=== PATIENT | male | born 1975 | race Caucasian/White ===

== ENCOUNTER → 2018-05-13 | Outpatient (CLI) | payer OTHER | LOC: NUC 09:31 | DX: R14.0 Abdominal distension (gaseous) (principal); R10.11 Right upper quadrant pain ==

== ENCOUNTER 2018-06-05 06:08 | Day surgery (SDC) | payer OTHER ==
[~2018-06-05] VITALS: Ht 180.3 cm; Wt 127.9 kg
--- NOTE | ~2018-06-05 | O ---
[facility] [place] [address] [address] [place] [address] OPERATIVE REPORT Name: SETH HOLDER Room #: 449-I [facility]..#: [id number] Admission: 06/05/18 Attend Phys: Guy Koroma MD Discharge: Date of : 73 Report #: [id number] THIS REPORT FOR: //name// CC: Guy Hensley MD DATE OF SERVICE: 06/05/2018 PREOPERATIVE DIAGNOSIS: Cholecystitis, acalculous. POSTOPERATIVE DIAGNOSIS: Cholecystitis, acalculous with cholesterolosis. PROCEDURES PERFORMED: Laparoscopic cholecystectomy with intraoperative cholangiogram. SURGEON: Guy Koroma MD ANESTHESIA: General anesthesia. COMPLICATIONS: None. ESTIMATED BLOOD LOSS: 5 mL. FINDINGS: There was adhesion identified in the proximal part of the gallbladder. Common bile duct is normal on operative cholangiogram. DESCRIPTION OF PROCEDURE: With the patient under general anesthesia, the abdomen was prepped and draped in a sterile fashion. Timeout was performed. The patient did receive preoperative IV antibiotic. 0.25% Marcaine was used to anesthetize the skin and subcutaneous tissue. Incision was made above the umbilicus in a curvilinear fashion. Fascia identified, grasped with hemostat. Fascia was then opened between the hemostat, 0 Vicryl suture placed in the fascial edges. A Veress needle was then placed through the peritoneum. Abdominal cavity was insufflated with CO2. After creating pneumoperitoneum pressure of 15, 11 mm trocar was placed in pneumoperitoneum. No harm to surrounding tissue. Two 5 mm trocars were placed in the right upper quadrant and a 5 mm trocar was placed in the right epigastrium. The patient was placed in reverse Trendelenburg position, right side tilted up. Gallbladder was identified, lifted over the liver. There is some adhesion identified in the proximal gallbladder. These were taken down. Peritoneum over the cystic duct was then dissected free both medial and then laterally. The cystic duct was isolated without difficulty. Cystic duct was cleaned off. Clip was placed in the junction of the cystic duct to the gallbladder. Opening was made in the cystic duct. Cholangiogram catheter was placed. Fluoroscopic cholangiogram was obtained. The cholangiogram catheter was identified in the cystic duct, common [address] [address] OPERATIVE REPORT Name: SETH HOLDER Room #: 449-I [facility]..#: [id number] Admission: 06/05/18 Attend Phys: Guy Koroma MD Discharge: Date of : 73 Report #: [id number] duct filled out well. No filling defect was seen. Dye was seen to flow into the duodenum. The anatomy was normal. Common duct anatomy was normal. No harm to common duct was seen. The cholangiogram catheter was then removed. Proximal cystic duct was then clipped x 2 and then divided. The cystic artery was then isolated, clipped x 2 proximally and one distally and then divided. Gallbladder was free from the liver bed. There was a pretty sizable vein in the liver bed. This was clipped and then divided. Gallbladder was completely freed without difficulty. Gallbladder was then removed through the 11 mm trocar site. Gallbladder was opened and the bile suctioned out and the gallbladder then came out. The gallbladder was opened off the field. It did contain cholesterolosis. The adhesion cholesterolosis are consistent with bad gallbladder/cholecystitis. Liver bed was checked, hemostasis excellent. Small piece of Surgicel fibrillar was placed in the liver bed. Irrigation was aspirated out. CO2 was evacuated as much as possible. Trocars were then removed. The fascia defect above the umbilicus was then closed with 0 Vicryl [id number]-wg-jvmbw x 2. Skin was irrigated. Skin was closed with 5-0 PDS. Steri-Strip and Band-Aid used for dressing. The patient tolerated the procedure well. By: 16 00 Guy Koroma MD /nt
--- NOTE | ~2018-06-05 | H ---
[facility] [place] [address] HISTORY AND PHYSICAL Name: SETH HOLDER Room #: 150-10 [facility] M.R.#: [id number] Admission: 06/05/18 Attend Phys: Guy Koroma MD Discharge: Date of : 73 Report #: [id number] THIS REPORT FOR: //name// CC: Guy Hensley DATE OF SERVICE: 06/05/2018 PREOPERATIVE DIAGNOSIS: Cholecystitis, acalculous. HISTORY OF PRESENT ILLNESS: The patient is a 42-year-old who is here for gallbladder surgery. The patient has had right upper quadrant pain for about a year and a half. The patient had an ultrasound performed on 10/12/2016. The patient has pain located under the right ribs. Initially, it did go to his back. Now it is concentrated in the right upper quadrant. No nausea or vomiting. The patient has occasional diarrhea. The patient does complain of being bloated and full. Also increased gas with increased belching and flatus. He did have a significant episode prior to his office visit on 04/28. This lasted several hours. Sometimes the pain is associated with foods. He has issue with spicy foods. Occasionally, he has issues after eating fast food. His symptoms are more in the nighttime. It does wake him up. Usually he feels good in the morning. The patient's pain is typically dull in the right upper quadrant, has had several episodes that are sharp, really sharp in nature when it gets intense. Occasionally the pain is described as squeezing. No family history of gallbladder disease. The patient did undergo a PIPIDA scan with Kinevac injection. The ejection fraction was 46%. The result was discussed with the patient and he on exam did have localized tenderness in the right upper quadrant that is mild to moderate in nature. The patient is recommended to proceed with gallbladder surgery. I am pretty certain that he does have gallbladder disease. The patient was originally to be scheduled in June, but he had attack and he wanted to have had the surgery done sooner. PAST MEDICAL HISTORY: The patient has a history of obesity. No heart disease, no diabetes, no high blood pressure, no lung disease, no liver disease, no kidney disease, no bleeding disorder, no history of blood clot. ALLERGIES: He does not have any allergies. MEDICATIONS: He has been on dicyclomine in the past. The patient does take dmnx-axb-uyixbtd Tums. He takes Tylenol for pain. FAMILY HISTORY: Father had heart disease. Mother had cancer. Uncle with prostate. SOCIAL HISTORY: The patient is a host/hostess head. He does not currently smoke. He quit in 1997. Occ[place] [address] HISTORY AND PHYSICAL Name: SETH HOLDER Room #: 150-10 [facility] M.R.#: [id number] Admission: 06/05/18 Attend Phys: Guy Koroma MD Discharge: Date of : 73 Report #: [id number] REVIEW OF SYSTEMS: No chest pain, shortness of breath or palpitation. No numbness or weakness. No headache or blurred vision. PHYSICAL EXAMINATION: GENERAL: The patient is a well-nourished male in no acute distress. HEENT: Pupils react to light. Extraocular muscles are intact. Oropharynx is clear. NECK: Soft and supple, no masses. LUNGS: Clear to auscultation. HEART: Regular rate and rhythm. No murmur or gallop. Normal S1 and S2. ABDOMEN: Soft. He does have tenderness in the right upper quadrant that is mild to moderate in nature. No mass, guarding or rigidity. No evidence of ascites. EXTREMITIES: No cyanosis, clubbing or edema. IMPRESSION: The patient is a 42-year-old with abdominal pain that is pretty classic for gallbladder disease. This has been going on for about a year and a half. No stones are seen on ultrasound. The patient did have a PIPIDA scan, which showed indeterminate ejection fraction. The patient is recommended to have gallbladder removed to treat his symptoms. I do not think there is anything else going on. The patient wants to proceed with surgery. Risk of the procedure including bleeding, infection, common bile duct injury and bile leak was discussed. The patient understands the procedure and wishes to proceed. By: 1014 1041 Guy Koroma MD /nt
--- NOTE | ~2018-06-05 | H ---
[facility] [place] [address] HISTORY AND PHYSICAL Name: SETH HOLDER Room #: 150-10 [facility] M.R.#: [id number] Admission: 06/05/18 Attend Phys: Guy Koroma MD Discharge: Date of : 73 Report #: [id number] THIS REPORT FOR: //name// CC: Guy Hensley DATE OF SERVICE: 06/05/2018 PREOPERATIVE DIAGNOSIS: Cholecystitis, acalculous. HISTORY OF PRESENT ILLNESS: The patient is a 42-year-old who has had abdominal pain, right upper quadrant for about a year and a half. The patient did have an ultrasound done on 10/12/2016. Gallbladder was normal appearance. No stones were seen. No wall thickening. The patient is complaining of pain in the right upper quadrant under the ribs. Initially, it went to his back. Now it is just in his right upper quadrant. No nausea or vomiting. Occasional diarrhea. The patient does complain of being full and bloated. He has increased gas with belching and increased flatus. The patient had an episode recently that lasted several hours. Occasionally, the DICTATION ENDS HERE By: 1008 1020 Guy Koroma MD /nt
--- NOTE | ~2018-06-05 | PATH ---
[facility] [address] [address] PATHOLOGY RPT PROCEDURE Name: SETH RIVER Room #: DEP [facility] M.R.#: [id number] Admission: 06/05/18 Date of : 73 Discharge: 06/06/18 Report #: [id number] Path Case #: [id number] [facility] Accession Number: [id number] . 01 Material submitted: . GALLBLADDER . 01 Clinical history: . Cholecystitis. . 02 Diagnosis: Gallbladder "gallbladder cholecystectomy": - Moderate chronic cholecystitis. (SHA:ever; 06/08/2018) QMS/06/08/2018 . 02 Electronically signed: . Yung Harris MD, Pathologist NPI- [id number] . 01 Gross description: . Received in formalin labeled "Seth River, gallbladder" is a previously opened cholecystectomy specimen measuring 7.0 x 2.5 x 1.3 cm. The serosa is garza-green and smooth. The mucosa is yellow-green and velvety without polyps or masses, and an average wall thickness of 0.2 cm. No calculi are present within the gallbladder or within the container. Slitter And Rewinder sections of the fundus and body and the cystic duct margin are submitted in cassette A1. ([facility]; 06/07/2018) SYC/SYC . 02 Pathologist provided ICD-10: K81.1 . 02 CPT . 681552 Specimen Comment: A courtesy copy of this report has been sent to Specimen Comment: [phone], . Specimen Comment: Report sent to / DR ZAMORA Specimen Comment: A duplicate report has been generated due to demographic updates. Performed at: [address] [id number] MD Robert Rolon MD Phone: [phone] Performed at: [address] [id number] [address] [address] PATHOLOGY RPT PROCEDURE Name: SETH RIVER Room #: DEP [facility] Belen#: [id number] Admission: 06/05/18 Date of : 73 Discharge: 06/06/18 Report #: [id number] Path Case #: [id number] MD Mali Shah MD Phone: [phone]
[~2018-06-05 06:08] MED LIST: CHEWABLE-VITE1 EAC1 PO; IBUPROFEN 200200 M1 PO
[2018-06-05 12:44] VITALS: BP 159/92
[2018-06-05 17:48] VITALS: BP 117/66
[2018-06-05 19:03] VITALS: BP 125/70
[2018-06-05 23:51] VITALS: BP 120/75
[2018-06-06 05:05] VITALS: BP 124/74
[2018-06-06 07:00] VITALS: BP 120/74
[2018-06-06] MEDS ORDERED: HYDROCODONE-AP1 EAC6 PO (12:29)
[2018-06-06 12:49] VITALS: BP 120/74
== END 2018-06-06 14:09 | disposition home or self-care (01) ==
LOC: TBA 06:08 → OR 06:08 → 4W 17:28 → OR 06-06 14:09
DX: K81.1 Chronic cholecystitis (principal); Z82.49 Family history of ischemic heart disease and other diseases of the circulatory system; Z87.891 Personal history of nicotine dependence; Z98.890 Other specified postprocedural states; Z79.891 Long term (current) use of opiate analgesic
CPT/HCPCS: 10047; 50010; 50101; 50411; 50555; 50558; 51489; 53307; 53310; 55245; 55317; 56462; 56525; 56526; 62110; 62900; 70005

== ENCOUNTER 2018-10-27 21:09 | Emergency (ER) | payer BC ==
[~2018-10-27] VITALS: Ht 180.3 cm; Wt 120.2 kg
[~2018-10-27 21:09] MED LIST changes: +HYDROCODONE-AP1 EAC6 PO
[2018-10-27 21:34] LABS: ABSOLUTE NEUTROPHILS 3.2 thou/uL (1.4-8.2); BASOPHILS 0.5 % (0.0-2.0); EOSINOPHILS 1.3 % (0.0-3.0); HEMOGLOBIN 15.3 gm/dL (14.0-18.0); LYMPHOCYTES 43.1 % (24.0-44.0); MCH 31.1 pg (26.0-34.0); MCV 91.4 fL (80.0-100.0); MONOCYTES 7.9 % (1.0-8.0); PLATELET COUNT 266 thou/uL (150-400); POLYS 47.2 % (36.0-66.0); RBC 4.92 mil/uL (4.50-6.00); WBC 6.8 thou/uL (4.0-11.0)
[2018-10-27 21:41] LABS: ANION GAP 10 mmol/L (7-16); BUN 17 mg/dL (7-18); CALCIUM 9.7 mg/dL (8.5-10.1); CHLORIDE 104 mmol/L (98-107); CO2 27 mmol/L (21-32); GLUCOSE 137 mg/dL (74-106); POTASSIUM 3.6 mmol/L (3.5-5.1); SODIUM 141 mmol/L (136-145)
[2018-10-27 21:51] LABS: ALBUMIN 4.3 g/dL (3.4-5.0); SGOT 12 U/L (15-37); SGPT 15 U/L (30-65); TOTAL BILIRUBIN 0.4 mg/dL (<0.1-1.0); TOTAL PROTEIN 7.6 g/dL (6.4-8.2); TROPONIN-I <0.06 ng/mL (<0.06)
[2018-10-28 00:59] VITALS: BP 127/81
--- NOTE | 2018-10-28 08:15 | EKG ---
[address] [address] ELECTROCARDIOGRAM REPORT Name: SETH HOLDER [id number] ������������������ Admission: 10/27/18 ������������������ Attend Phys: Discharge: 10/28/18 ������������������ Date of : 73 Report #: [id number] ����������������������������������������������������������������� [id number] THIS REPORT FOR: //name// [facility] ED Test Date: 2018-10-27 Test Time: 21:20:38 Pat Name: SETH HOLDER Department: Room: Gender: M [employer] Management Specialist: bianca : 1975 Requested By: Mali Torres Order Number: [id number] MD: Darin Soto Measurements Intervals [place] Rate: 66 P: 32 AR: 171 QRS: 6 QRSD: 98 T: 25 QT: 393 QTc: 412 Interpretive Statements Sinus rhythm Compared to ECG 12/07/2003 17:29:29 Sinus bradycardia no longer present Electronically Signed On 10-28-2018 8:15:21 CDT by Darin Soto [email or web address] ��������������������������������������������� <ELECTRONICALLY SIGNED> ���������������������������������������� By: Darin Soto MD ��������������������������������������������� 10/28/18814 19 19 Darin Soto MD /SAAD
== END 2018-10-28 00:59 | disposition home or self-care (01) ==
LOC: ER 21:09
PROVIDERS: Student in an Organized Health Care Education/Training Program
DX: R07.89 Other chest pain (principal); E78.5 Hyperlipidemia, unspecified; Z87.891 Personal history of nicotine dependence

== ENCOUNTER → 2019-03-02 | Outpatient (CLI) | payer BC | LOC: CAT 06:58 | DX: K76.9 Liver disease, unspecified (principal); R10.11 Right upper quadrant pain ==

== ENCOUNTER → 2019-06-04 | Outpatient (CLI) | payer BC | LOC: MRI 09:13 | DX: K76.9 Liver disease, unspecified (principal) ==